=== PATIENT | female | born 2000 | race Caucasian/White ===

== ENCOUNTER 2022-08-06 17:21 | Emergency (ER) | payer OTHER, SELFPAY ==
[2022-08-06 17:45] VITALS: BP 143/97; PULSE 93; RESP 18; TEMP 36.7; O2SAT 100
--- NOTE | 2022-08-06 17:57 | ED.NAVMDI ---
HPI - Nausea/Vomiting/Diarrhea General Chief complaint: Nausea/Vomiting/Diarrhea Stated complaint: Diarrhea,Abdominal Pain Source: patient Mode of arrival: ambulatory History of Present Illness HPI Narrative: This is a 22-year-old female who presented to our urgent care to get a doctor statement for work. Patient's has a history of irritable bowel syndrome and has a appointment with her gastroenteritis DrDai for further treatment. Patient notes that she has been having diarrhea and has been unable to make it to the restroom and has not been able to go to work as a result of this.. She denies any abdominal pain. The patient denies SOB, CP, palpitation, extremity numbness, lightheadedness, dizziness, constipation, chills, or fever. Related Data Allergies Allergy/AdvReac Type Severity Reaction Status Date / Time No Known Allergies Allergy Verified 08/06/22 17:37 Review of Systems Review of Systems: A 14 organ system Review of Systems was performed and pertinent positives included in the HPI, otherwise remaining ROS is negative. Course Course Level of Care: Express Care Visit Vital Signs Vital signs: Vital Signs Temperature 98.1 F 08/06/22 17:45 Pulse Rate 93 08/06/22 17:45 Respiratory Rate 18 08/06/22 17:45 Blood Pressure 143/97 H 08/06/22 17:45 Pulse Oximetry 100 08/06/22 17:45 Oxygen Delivery Room Air 08/06/22 17:45 Temperature 98.1 F 08/06/22 17:45 Pulse Rate 93 08/06/22 17:45 Respiratory Rate 18 08/06/22 17:45 Blood Pressure 143/97 H 08/06/22 17:45 Pulse Oximetry 100 08/06/22 17:45 Oxygen Delivery Room Air 08/06/22 17:45 Discharge Plan Discharge Clinical Impression: Diarrhea Patient Disposition: Home, Self-Care Condition: Stable Instructions: Antibiotic Form, Irritable Bowel Syndrome (ED) Additional Instructions: 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 ?Start a diary to keep track of what you ate each day, what you did, and how you felt. That way, you can figure out if anything you do or eat makes your symptoms better or worse.? ?Stop eating foods that might be making your IBS worse. Start by giving up foods that give you gas and then milk, ice cream, and other foods that have traces of milk for 2 weeks. Ask your doctor or nurse for advice on which foods can make IBS worse.? ?Eat more fiber, if you have constipation. You can do this by eating more fruits and vegetables. Or you can take fiber pills or powders. (If eating more fiber makes symptoms worse, cut back on the fiber.)? ?Exercise. Do something active for 20 to 60 minutes, 3 to 5 days a week. Studies show this helps improve IBS symptoms. Drink plenty of fluids to stay hydrated? Prescriptions: New loperamide 2 mg capsule 2 mg PO Q6H PRN (Reason: loose stool) Qty: 30 0RF Follow-up/Referrals: Geovanna,Danie Bethea MD [Primary Care Provider] - Stand Alone Forms: Work/School Release IP
== END 2022-08-06 18:00 | disposition home or self-care (01) ==
PROVIDERS: Emergency Provider Nurse Practitioner; PCP Family Medicine
DX: R19.7 Diarrhea, unspecified (principal)
CPT/HCPCS: 99203; G0463

== ENCOUNTER 2022-08-19 18:26 | Emergency (ER) | payer OTHER, SELFPAY ==
[2022-08-19 18:59] VITALS: BP 149/90; PULSE 128; RESP 16; TEMP 37.7; O2SAT 100
--- NOTE | 2022-08-19 19:43 | ED.GENADULT ---
HPI - General Adult General Chief complaint: Medical Clearance Stated complaint: Doctors Note Time Seen by Provider: 08/19/22 19:43 Source: patient, RN notes reviewed and old records reviewed Mode of arrival: ambulatory Limitations: no limitations History of Present Illness HPI narrative: 22-year-old female presents to the [facility] requesting a work note. Patient states that on Thursday she got her COVID vaccine. She developed into body aches pains and vomiting. Feels great today. Just wants to go back to work. Denies any fevers, abdominal pain, chest pain. Related Data Home Medications Medication Instructions Recorded Confirmed etonogestrel 68 mg subdermal See Rx Instructions .Route .COMPLEX 08/06/22 08/19/22 implant (Nexplanon) Allergies Allergy/AdvReac Type Severity Reaction Status Date / Time Penicillins Allergy Unknown Other Verified 08/19/22 19:37 Review of Systems Review of Systems: All systems reviewed & are unremarkable except as noted in HPI and below Constitutional: Constitutional: Reports no additional constitutional complaints, Denies chills and Denies fever(s) Eyes: Eyes: Reports no additional eye complaints ENT: Reports system reviewed and no additional complaints, except as documented Cardiovascular: Cardiovascular: Reports no additional cardiovascular complaints Respiratory: Respiratory: Reports no additional respiratory complaints Gastrointestinal: Gastrointestinal: Reports no additional gastrointestinal complaints Musculoskeletal: Musculoskeletal: Reports no additional musculoskeletal complaints Integumentary/Breasts: Skin/Breast: Reports system reviewed and no additional complaints, except as docu Neurologic: Reports system reviewed and no additional complaints, except as documented Psychiatric: Psychiatric: Reports no additional psychiatric complaints Allergic/Immunologic: Allergic/Immunologic: Reports no additional allergic/immunologic complaints PMFSH Comments At the time of my signature, I reviewed and agree with the nursing past medical, surgical, social, and family history. There is no relevant family history pertinent to the patient complaint. Exam Const: General: healthy appearing, comfortable, no acute distress, well developed, alert and well nourished Nutritional Appearance: well nourished and obese Orientation/consciousness: patient oriented x3 Limitations: no limitations HENMT: Head: normal to inspection Ears: external ears normal Face/Nose/Sinus: Normal external nose present and Normal nares present Face and sinus: normal facial exam Mouth: Yes Normal oral and palatal mucosa present, Yes lip normal and Yes moist mucous membranes Throat: posterior oropharynx normal and uvula midline Eyes: General: appearance normal, both eyes and all related structures Conjunctivae: conjunctivae normal Pupils: Equal, round and reactive pupils present Neck: Neck: normal visual inspection, full ROM, no lymphadenopathy and no meningeal signs Chest: Chest palpation & inspection: normal inspection of the chest Resp: Effort & Inspection: normal respiratory effort and no use of accessory muscles Cardio: Rate: regular rate Rhythm: regular rhythm Back/Spine/Pelvis: Cervical Spine: cervical ROM normal and No Cervical spine tenderness Thoracic/Lumbar Spine: thoracic and lumbar spine normal to inspection and thoraco-lumbar ROM normal Skin: General skin exam: normal color Rashes: no rashes Wounds: no wounds Neuro: General: patient oriented x3, moves all extremities, no meningeal signs and no focal motor deficits Cranial nerves: Yes Equal, round and reactive pupils present Speech: normal speech Gait exam (Neuro): Normal gait present Extrem: General: normal to inspection, full ROM and capillary refill normal Psych: Appearance: grossly normal and well kempt Mental Status: mental status grossly normal Affect: normal affect Attitude: cooperative Thought content: Yes Normal thoug
== END 2022-08-19 19:52 | disposition home or self-care (01) ==
PROVIDERS: Emergency Provider Nurse Practitioner; PCP Family Medicine
DX: Z71.1 Person with feared health complaint in whom no diagnosis is made (principal)
CPT/HCPCS: 99211; G0463

== ENCOUNTER 2022-10-28 16:34 | Emergency (ER) | payer OTHER, SELFPAY ==
--- NOTE | 2022-10-28 16:47 | ED.URI ---
HPI - URI/Sore Throat General Stated Complaint: cold symptoms Time Seen by Provider: 10/28/22 16:47 Source: patient Mode of arrival: ambulatory Limitations: no limitations History of Present Illness HPI Narrative: Radha is a 22-year-old female patient presenting to clinic today with complaints of runny nose, cough, sore throat, body aches, and fever. Reports that symptoms started on Thursday. States she had 102 degree temperature this morning. 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 States she did an at-home COVID test yesterday that was negative. Work is requesting an influenza test prior to her coming back to work. MD elicited complaint: fever, cough, sore throat, nasal congestion and other (Body aches) Related Data Home Medications Medication Instructions Recorded Confirmed etonogestrel 68 mg subdermal See Rx Instructions .Route .COMPLEX 08/06/22 08/19/22 implant (Nexplanon) Allergies Allergy/AdvReac Type Severity Reaction Status Date / Time Penicillins AdvReac Unknown Other Verified 10/28/22 16:52 Review of Systems Review of Systems: Pertinent positives per HPI. Patient denies any rash, headache, visual changes, dizziness, shortness of breath, chest pain, palpitations, nausea, vomiting, diarrhea, constipation, abdominal pain, or any urinary issues. PMFSH Comments At the time of my signature, I reviewed and agree with the nursing past medical, surgical, social, and family history. There is no relevant family history pertinent to the patient complaint. Exam Narrative: General: Well-developed, obese, in no apparent distress Head: Normocephalic, atraumatic Eyes: Pupils equally round and reactive to light bilaterally, EOM intact, sclera and conjunctive clear, no discharge, lids normal Ears: TMs intact and clear, ear canals clear, no drainage, grossly hearing normal. Nose: Nares patent, no discharge, no inflammation, no sinus tenderness. Mouth: Oral pharynx without lesions or masses, good dentition, MMM. Neck: Supple, trachea midline, no enlargement of anterior or posterior cervical nodes, no thyroid masses or goiter palpable. Cardio: Regular rate and rhythm, s1 and s2 normal, no murmur appreciated. Resp: Clear to auscultation bilaterally, no rhonchi, rales, wheezing or rubs Course Course Emergency Course: Portions of this record may have been created with voice recognition software. Level of Care: Express Care Visit Vital Signs Vital signs: Vital signs reviewed MDM - URI/Sore Throat MDM Narrative Medical decision making narrative: At the time of the patient is resting comfortably on exam table. Influenza testing was performed in clinic was negative. I suspect patient has URI/viral syndrome. Supportive measures were discussed with the patient she voiced understanding of discharge instructions and agrees to treatment plan. Differential Diagnosis Differential diagnosis: Likely upper respiratory infection, otitis media, sinusitis, viral infection, bronchitis, influenza, pharyngitis and other (COVID) Discharge Plan Discharge Clinical Impression: Acute upper respiratory infection, Acute viral syndrome Patient Disposition: Home, Self-Care Condition: Stable Instructions: Antibiotic Form, Upper Respiratory Infection (ED), Viral Syndrome (ED) Additional Instructions: Influenza testing was negative in the clinic today. Increase fluids and stay well hydrated Tylenol/motrin for pain/fever Flonase and OTC antihistamines as directed Vicks vapor rub to open sinuses Sinus rinses for congestion Cepacol spray, cough drops, throat lozenges, warm tea with honey/lemon, gargle salt water to soothe throat BRAT diet for diarrhea Clear liquids x 24 hours then advance as tolerated for nausea/vomiting Go to the ED if you develop a worsening in your condition- high fever not controlled by Tylenol or Motrin, dehydration, weakness, lethargy, shortness of breath, or chest pain. Foll
[2022-10-28 16:52] VITALS: BP 135/85; PULSE 91; RESP 18; TEMP 36.6; O2SAT 99
== END 2022-10-28 17:11 | disposition home or self-care (01) ==
PROVIDERS: Emergency Provider Nurse Practitioner Family; PCP Family Medicine
DX: J06.9 Acute upper respiratory infection, unspecified (principal); B34.9 Viral infection, unspecified; Z86.16 Personal history of COVID-19
CPT/HCPCS: 87804; 99213; G0463

== ENCOUNTER 2022-12-28 04:27 | Emergency (ER) | payer OTHER, SELFPAY ==
[2022-12-28 04:32] VITALS: BP 139/99; PULSE 112; RESP 18; TEMP 36.9; O2SAT 100
[2022-12-28 06:01] VITALS: BP 157/90; PULSE 93; RESP 16; O2SAT 98
[2022-12-28 07:20] VITALS: BP 141/87; PULSE 77; RESP 18; O2SAT 100
--- NOTE | 2022-12-28 08:18 | ED.GENADULT ---
HPI - General Adult General Chief complaint: Unspecified Stated complaint: nausea, felt shock in body, back, chest Time Seen by Provider: 12/28/22 07:58 Source: patient Mode of arrival: ambulatory Limitations: no limitations History of Present Illness HPI narrative: 22 years old white female drove herself to the emergency room from home because not feeling well. Patient got up this morning feeling nauseated, went to the bathroom to vomit, she could not then started feeling burning sensation across the chest and upper back going to both arms, subsequently seeing black spots which resolved on arrival to the emergency room. Patient reports no previous medical history, have a lot of stress lately. Currently patient feeling back to normal. She denies any fever, chills, shortness of breath or headache. Patient sexually active, does not smoke or drink or uses drugs. Family history of bipolar Related Data Home Medications Medication Instructions Recorded Confirmed etonogestrel 68 mg subdermal See Rx Instructions .Route .COMPLEX 08/06/22 10/28/22 implant (Nexplanon) Allergies Allergy/AdvReac Type Severity Reaction Status Date / Time Penicillins AdvReac Unknown Other Verified 12/28/22 04:28 Review of Systems Review of Systems: All systems reviewed & are unremarkable except as noted in HPI and below Exam Narrative: General appearance: Well-developed, well-nourished Skin: Normal color Head: Normocephalic, nontraumatic Eyes: Clear conjunctiva ENT: Oropharynx normal, ears normal, nose normal Neck: Supple, nontender Chest and respiratory: Airway patent, no respiratory distress, no accessory muscle use Heart: Regular rate/rhythm Abdomen: Soft, nontender, no organomegaly, quiet bowel sounds Vascular: Normal peripheral pulses, normal capillary refill. Musculoskeletal: Normal range of motion, nontender back Neurologic: Alert and oriented ?3, [employer] is normal as tested, no gross motor deficit Course Vital Signs Vital signs: Vital Signs Temperature 36.9 C 12/28/22 04:32 Pulse Rate 112 H 12/28/22 04:32 Respiratory Rate 18 12/28/22 04:32 Blood Pressure 139/99 H 12/28/22 04:32 Pulse Oximetry 100 12/28/22 04:32 Temperature 36.9 C 12/28/22 04:32 Pulse Rate 77 12/28/22 07:20 Respiratory Rate 18 12/28/22 07:20 Blood Pressure 141/87 H 12/28/22 07:20 Pulse Oximetry 100 12/28/22 07:20 Medical Decision Making MDM Narrative Medical decision making narrative: Patient presents with nonspecific symptoms, a lot of stress lately. Anxiety-like symptoms is my concern. EKG showed normal sinus rhythm at 91 bpm otherwise normal, urine test showed no acute abnormalities, patient is not . Patient's symptoms resolved on arrival to the emergency room. Currently is asymptomatic. Differential Diagnosis Differential Diagnosis: Anxiety, Vital Signs Vital Signs: Vital Signs Temperature 36.9 C 12/28/22 04:32 Pulse Rate 112 H 12/28/22 04:32 Respiratory Rate 18 12/28/22 04:32 Blood Pressure 139/99 H 12/28/22 04:32 Pulse Oximetry 100 12/28/22 04:32 Temperature 36.9 C 12/28/22 04:32 Pulse Rate 77 12/28/22 07:20 Respiratory Rate 18 12/28/22 07:20 Blood Pressure 141/87 H 12/28/22 07:20 Pulse Oximetry 100 12/28/22 07:20 Lab Data Labs: Lab Results 12/28/22 Range/Units 08:48 Urine Color Yellow (Yellow) Urine Appearance Clear (Clear) Urine pH 5.5 (5.0-9.0) Ur Specific [place] 1.015 (1.001-1.035) Urine Protein Negative (Negative) mg/dL Urine Glucose (UA) Negative (Negative) mg/dL Urine Ketones Negative (Negative) mg/dL Ur Blood (Man) Negative
--- NOTE | 2022-12-28 08:22 | ECG_ITS ---
Measurements Intervals [place] Rate: 91 P: 15 NM: 147 QRS: 32 QRSD: 92 T: 5 QT: 346 QTc: 427 Interpretive Statements SINUS RHYTHM MINIMAL Q WAVES- INFERIOR LEADS BORDERLINE T WAVE ABNORMALITY- ANT/INF LEADS BORDERLINE ECG NO PREVIOUS ECG AVAILABLE FOR COMPARISON Electronically Signed On 12-28-2022 17:12:33 CDT by Robi Cesar D.O.
[2022-12-28 09:13] LABS: Appearance Urine Clear (Clear); Bacteria Urine Rare /hpf; Bilirubin Urine Negative (Negative); Blood Urine Negative (Negative); Color Urine Yellow (Yellow); Glucose Urine UA Negative (Negative); Ketones Urine Negative (Negative); Leukocyte Esterase Ur Trace LEU/UL (Negative); Nitrate Urine Negative (Negative); Non Pathogenic Casts 0-2; Protein Urine Negative (Negative); RBC Urine 0-2 /hpf (0-2); Specific Grav Ur 1.015 (1.001-1.035); Squamous Epithelial Cell Urine Occasional /hpf (Few); Urobilinogen Urine 0.2 mg/dL (<2.0); WBC Urine 0-5 /hpf; pH Urine 5.5 (5.0-9.0)
[2022-12-28 09:16] LABS: Add Urine Microscopic? YES
[2022-12-28 09:41] VITALS: BP 117/82; PULSE 89; RESP 20; O2SAT 100
== END 2022-12-28 09:43 | disposition home or self-care (01) ==
PROVIDERS: Emergency Provider Emergency Medicine; PCP Family Medicine
DX: F41.8 Other specified anxiety disorders (principal)
CPT/HCPCS: 81001; 81025; 93005; 99283

== ENCOUNTER 2023-03-03 16:31 | Emergency (ER) | payer OTHER, SELFPAY ==
[2023-03-03 16:40] VITALS: BP 140/75; PULSE 77; RESP 18; TEMP 36.8; O2SAT 100
--- NOTE | 2023-03-03 16:42 | ED.ABDPAIN ---
HPI - Abdominal Pain General Chief Complaint: Abdominal Pain Stated Complaint: Abdominal Pain/Diarrhea Time Seen by Provider: 03/03/23 16:43 Source: patient Mode of arrival: ambulatory Limitations: no limitations History of Present Illness HPI narrative: Radha is a 22-year-old female patient presenting to the clinic today with complaints of abdominal cramping/diarrhea. She reports symptoms have been going on for approximately 1 day. She reports the last time she was seen for this she got a prescription for some loperamide and that helped her. She has taken something [id number] but does not know what she has taken. Denies any fever or chills. Denies any current pain. States she is supposed to see a GI specialist for possible IBS Related Data Home Medications Medication Instructions Recorded Confirmed etonogestrel 68 mg subdermal See Rx Instructions .Route .COMPLEX 08/06/22 03/03/23 implant (Nexplanon) Allergies Allergy/AdvReac Type Severity Reaction Status Date / Time Penicillins AdvReac Unknown Other Verified 03/03/23 16:41 Review of Systems Review of Systems: Pertinent positives per HPI. Patient denies any fever, chills, rash, headache, visual changes, dizziness, cough, runny nose, sore throat, shortness of breath, chest pain, palpitations, nausea, vomiting, constipation, or any urinary issues. PMFSH Comments At the time of my signature, I reviewed and agree with the nursing past medical, surgical, social, and family history. There is no relevant family history pertinent to the patient complaint. Exam Narrative: General: Well-developed, obese, in no apparent distress. Head: Normocephalic, atraumatic. Cardio: Regular rate and rhythm, s1 and s2 normal, no murmur appreciated. Resp: Clear to auscultation bilaterally, no rhonchi, rales, wheezing or rubs. Abdomen: Soft, pliable, bowel sounds present in all quadrants, non-tender to palpation, no organomegly, no CVAT tenderness. Course Course Emergency Course: Portions of this record may have been created with voice recognition software. Level of Care: Express Care Visit Vital Signs Vital signs: Vital Signs Temperature 36.8 C 03/03/23 16:40 Pulse Rate 77 03/03/23 16:40 Respiratory Rate 18 03/03/23 16:40 Blood Pressure 140/75 03/03/23 16:40 Pulse Oximetry 100 03/03/23 16:40 Oxygen Delivery Room Air 03/03/23 16:40 Temperature 36.8 C 03/03/23 16:40 Pulse Rate 77 03/03/23 16:40 Respiratory Rate 18 03/03/23 16:40 Blood Pressure 140/75 03/03/23 16:40 Pulse Oximetry 100 03/03/23 16:40 Oxygen Delivery Room Air 03/03/23 16:40 Vital signs reviewed MDM - Abdominal Pain MDM Narrative Medical decision making narrative: At the time of visit patient is resting comfortably on the exam table. At the present time patient does not have any abdominal pain or cramping. Will send in prescription for some Levsin for her symptoms. Supportive measures were discussed with the patient she voiced understanding of discharge instructions and agrees to treatment plan. Differential Diagnosis Differential diagnosis: Likely abdominal pain, constipation, gastroenteritis, small bowel obstruction and other (Acute diarrhea) Discharge Plan Discharge Clinical Impression: Acute diarrhea, Abdominal cramping Patient Disposition: Home, Self-Care Condition: Stable Instructions: Antibiotic Form, Acute Diarrhea (ED), Abdominal Pain (ED) Additional Instructions: Take prescription medications only as prescribed-Levsin Increase fluids and stay well hydrated Tylenol/motrin for pain/fever May take Imodium as needed for diarrhea BRAT diet for diarrhea Clear liquids x 24 hours then advance as tolerated for nausea/vomiting Go to the ED if you develop a worsening in your condition- high fever not controlled by Tylenol or Motrin, dehydration, weakness, lethargy, shortness of breath, or chest pain. Follow up with
== END 2023-03-03 17:13 | disposition home or self-care (01) ==
PROVIDERS: Emergency Provider Nurse Practitioner Family; PCP Family Medicine
DX: R19.7 Diarrhea, unspecified (principal); R10.9 Unspecified abdominal pain; Z86.16 Personal history of COVID-19
CPT/HCPCS: 99211; G0463

== ENCOUNTER 2023-06-16 09:58 | Emergency (ER) | payer OTHER, SELFPAY ==
--- NOTE | ~2023-06-16 | XR_ITS ---
EXAMINATION: XR abdomen/kub 1V DATE: 06/16/2023 10:28 INDICATION: 2 days of lower abdominal pain and bloating TECHNIQUE: A supine view of the abdomen on 2 radiographs was obtained. COMPARISON: None. FINDINGS: Small amount of gas and stool in the ascending colon and at the rectum. No dilated loops of gas-fille d bowel to suggest obstruction. No calcification suspicious for urolithiasis in the abdomen or pelvis . Bones are unremarkable. IMPRESSION: 1. Normal bowel gas pattern. Reviewed, dictated and finalized at location A.
[2023-06-16 10:05] VITALS: BP 140/81; PULSE 82; RESP 18; TEMP 36.6; O2SAT 100
--- NOTE | 2023-06-16 10:07 | ED.ABDPAIN ---
HPI - Abdominal Pain General Chief Complaint: Urogenital-Female Stated Complaint: Abdominal Pain Time Seen by Provider: 06/16/23 10:07 Source: patient Mode of arrival: ambulatory Limitations: no limitations History of Present Illness HPI narrative: Radha is a 22-year-old female patient presenting to the clinic today with complaints of abdominal discomfort x 2-3 days. She is currently on her menses. Did at home COVID test on Thursday and was negative. States she is having abdominal bloating and mid to lower abdominal discomfort. Is concerned that she may be constipated. No history of IBS, constipation, Crohn's, or colitis. Denies any urinary symptoms currently. Last bowel movement was this morning and it was somewhat loose. No blood in her stool. Related Data Home Medications Medication Instructions Recorded Confirmed etonogestrel 68 mg subdermal See Rx Instructions .Route .COMPLEX 08/06/22 03/03/23 implant (Nexplanon) Allergies Allergy/AdvReac Type Severity Reaction Status Date / Time Penicillins AdvReac Unknown Other Verified 03/03/23 16:41 Review of Systems Review of Systems: Pertinent positives per HPI. Patient denies any fever, chills, rash, headache, visual changes, dizziness, cough, runny nose, sore throat, shortness of breath, chest pain, palpitations, nausea, vomiting, diarrhea, constipation, or any urinary issues. PMFSH Comments At the time of my signature, I reviewed and agree with the nursing past medical, surgical, social, and family history. There is no relevant family history pertinent to the patient complaint. Exam Narrative: General: Well-developed, well nourished, in no apparent distress. Head: Normocephalic, atraumatic. Cardio: Regular rate and rhythm, s1 and s2 normal, no murmur appreciated. Resp: Clear to auscultation bilaterally, no rhonchi, rales, wheezing or rubs. Abdomen: Soft, pliable, nondistended, bowel sounds present in all quadrants, mild tender to palpation over the lower abdomen and the mid abdomen, no organomegly, no CVAT tenderness. Course Course Emergency Course: Portions of this record may have been created with voice recognition software. Level of Care: Express Care Visit Vital Signs Vital signs: Vital Signs Temperature 36.6 C 06/16/23 10:05 Pulse Rate 82 06/16/23 10:05 Respiratory Rate 18 06/16/23 10:05 Blood Pressure 140/81 06/16/23 10:05 Pulse Oximetry 100 06/16/23 10:05 Oxygen Delivery Room Air 06/16/23 10:05 Temperature 36.6 C 06/16/23 10:05 Pulse Rate 82 06/16/23 10:05 Respiratory Rate 18 06/16/23 10:05 Blood Pressure 140/81 06/16/23 10:05 Pulse Oximetry 100 06/16/23 10:05 Oxygen Delivery Room Air 06/16/23 10:05 Vital signs reviewed MDM - Abdominal Pain MDM Narrative Medical decision making narrative: At the time of visit patient is resting on the exam table. Urinalysis and abdomen x-ray was performed. X-ray of the abdomen was negative for any sign of constipation, obstruction, or mass. Urinalysis shows 1+ bacteria and blood. Patient is currently on her menses. Patient is having some lower abdominal discomfort. A will treat her as urinary tract infection and have her follow-up with her PCP in 3-5 days if symptoms persist or sooner if they worsen. Supportive measures were discussed with the patient she voiced understanding discharge instructions agrees to treatment plan. We will send urine for culture. Will place the patient on Bactrim. Differential Diagnosis Differential diagnosis: Likely abdominal pain, acute appendicitis, calculus of kidney, constipation, diverticulitis, gastroenteritis, pancreatitis, small bowel obstruction and other (Urinary tract infections) Imaging Data Radiologist's impression: [address] [address] XRay Report Signed Patient: Radha Mobley : 2000 MR#: [id number] Age/Sex: 22 / F Acct:F
== END 2023-06-16 10:51 | disposition home or self-care (01) ==
PROVIDERS: Emergency Provider Nurse Practitioner Family; PCP Family Medicine
DX: N30.01 Acute cystitis with hematuria (principal)
CPT/HCPCS: 74018; 81003; 87086; 87088; 99213; G0463

== ENCOUNTER 2024-03-25 11:49 | Emergency (ER) | payer SELFPAY ==
--- NOTE | 2024-03-25 11:51 | ED.SKABFB ---
HPI - Skin/Abscess/Foreign Bdy General Chief complaint: Skin/Abscess/Foreign Body Stated complaint: Skin Time Seen by Provider: 03/25/24 11:51 Source: patient Mode of arrival: ambulatory Limitations: no limitations History of Present Illness HPI narrative: Patient is a 23-year-old female presents with wound to mons pubis. Patient states she recently shaved and has had similar wounds after shaving in the past. Usually she can get them to go away on their own. This 1 has been painful and is continued to grow. She 1st noticed area on Thursday. Denies any drainage from area and has not tried to pop. Related Data Allergies Allergy/AdvReac Type Severity Reaction Status Date / Time Penicillins AdvReac Unknown Other Verified 03/25/24 12:06 Review of Systems Review of Systems: All systems reviewed & are unremarkable except as noted in HPI and below Constitutional: Constitutional: Denies body ache(s), Denies chills, Denies fatigue, Denies fever(s), Denies headache(s), Denies malaise and Denies weakness Eyes: Eyes: Denies blurry vision, Denies irritation and Denies loss of vision ENT: Denies otalgia, Denies headache(s), Denies nasal discharge, Denies sinus pain and Denies sore throat Cardiovascular: Cardiovascular: Denies chest pain, Denies irregular heart rhythm and Denies dyspnea Respiratory: Respiratory: Denies dyspnea Gastrointestinal: Gastrointestinal: Denies abdominal pain, Denies melena, Denies hematochezia, Denies diarrhea, Denies nausea and Denies vomiting Musculoskeletal: Musculoskeletal: Denies back pain, Denies myalgias and Denies arthralgias Integumentary/Breasts: Skin/Breast: Denies pruritus, Denies rash and Reports wounds Neurologic: Denies headache(s), Denies loss of vision and Denies weakness Psychiatric: Psychiatric: Reports no additional psychiatric complaints Endocrine: Endocrine: Denies fatigue PMFSH Comments At time of signature, agree with nursing past medical, surgical, social and family history. There is no relevant family history pertinent to the presenting complaint. Exam Const: General: cooperative, healthy appearing, comfortable, no acute distress and well nourished Nutritional Appearance: well nourished Orientation/consciousness: patient oriented x3 Limitations: no limitations HENMT: Head: normal to inspection, normocephalic and atraumatic Ears: hearing grossly normal bilaterally and external ears normal Face/Nose/Sinus: Normal external nose present, normal facial exam and face symmetric Face and sinus: normal facial exam and face symmetric Mouth: Yes lip normal Eyes: General: appearance normal, both eyes and all related structures Alignment and Position: alignment normal and position normal Periorbital: periorbital findings normal Eyelids: eyelids normal Pupils: Equal, round and reactive pupils present EOM: EOMs intact bilaterally Neck: Neck: normal visual inspection, full ROM and supple Chest: Chest palpation & inspection: normal inspection of the chest Resp: Effort & Inspection: normal respiratory effort and able to speak in complete sentences Auscultation: clear to auscultation bilaterally Cardio: Rate: regular rate Rhythm: regular rhythm Heart sounds: S1 normal heart sound present and S2 normal heart sound present GI: Inspection: normal to inspection : External Female Exam: erythema (center of mons pubis surrounding ingrown hair) and externally tender (center of mons pubis surrounding ingrown hair) Female genitals images: 1. 2x2 cm area of erythema, induration. No area of fluctuation. Dilated pore noticed at center Skin: General skin exam: normal color and no rashes or lesions noted Neuro: General: patient oriented x3 and moves all extremities Cranial nerves: Yes Equal, round and reactive pupils present Speech: normal speech Gait exam (Neuro): Normal gait present Extrem: General: normal to inspection, full ROM and no edema Psych: Appearance: grossly portillo
[2024-03-25 12:05] VITALS: BP 135/74; PULSE 82; RESP 16; TEMP 37.1; O2SAT 99
== END 2024-03-25 12:31 | disposition home or self-care (01) ==
PROVIDERS: Emergency Provider Nurse Practitioner Family
DX: L73.1 Pseudofolliculitis barbae (principal); N76.2 Acute vulvitis; K21.9 Gastro-esophageal reflux disease without esophagitis; Z86.16 Personal history of COVID-19
CPT/HCPCS: 99213; G0463

== ENCOUNTER 2024-06-15 22:54 | Emergency (ER) | payer SELFPAY ==
[2024-06-15 23:08] VITALS: BP 140/91; PULSE 92; RESP 16; TEMP 36.7; O2SAT 98
[2024-06-16 01:19] LABS: Basophils Absolute Auto 0.1 K/mm3 (0.0-0.1); Basophils Percent Auto 0.9 % (0.2-1.2); Eosinophils Absolute Auto 0.1 K/mm3 (0-0.3); Eosinophils Percent Auto 1.2 % (0-4.4); Hematocrit 39.4 % (37.0-47.0); Hemoglobin 13.4 g/dL (12.0-15.0); Immature Granulocyte Absolute 0.03 K/mm3 (0.00-0.031); Immature Granulocyte Percent A 0.3 % (0-0.5); Lymphocytes Percent Auto 30.4 % (18.3-44.2); Mean Corpuscular Hemoglobin 29.1 pg (26-34); Mean Corpuscular Volume 85.7 fl (80-100); Mean Platelet Volume 10.1 fl (7.4-10.4); Monocytes Absolute Auto 0.6 K/mm3 (0.1-0.6); Monocytes Percent Auto 6.9 % (2.6-8.5); Neutrophils Absolute Auto 5.3 K/mm3 (1.3-6.7); Neutrophils Percent Auto 60.3 % (45.5-73.1); Platelet Count Result 297 k/mm3 (150-375); Red Cell Distribution Width 13.3 % (11.5-14.5); White Blood Count 8.9 K/mm3 (4.5-10.0)
[2024-06-16 01:30] LABS: Bacteria Urine None Seen /hpf; Non Pathogenic Casts 0-2; Partial Thromboplastin Time 26.3 Seconds (22.3-36.8); RBC Urine >100 /hpf (0-2); Squamous Epithelial Cell Urine None Seen /hpf (Few); WBC Urine 21-50 /hpf (0-3)
[2024-06-16 01:32] LABS: Add Urine Microscopic? YES; Appearance Urine Turbid (Clear); Bilirubin Urine Negative (Negative); Blood Urine 3+ (Negative); Color Urine Orange (Yellow); Glucose Urine UA Negative (Negative); Ketones Urine Negative (Negative); Leukocyte Esterase Ur 1+ LEU/UL (Negative); Nitrate Urine Negative (Negative); Protein Urine 2+ mg/dL (Negative); Specific Grav Ur 1.029 (1.001-1.035)
[2024-06-16 01:34] LABS: Alanine Aminotransferase 37 U/L (6-35); Albumin Level 4.3 g/dL (3.5-5.1); Alkaline Phosphatase 83 U/L (38-126); Anion Gap 13 mmol/L (4-12); Aspartate Amino Transferase 25 U/L (14-36); Bilirubin,Total 0.5 mg/dL (0.2-1.3); Blood Urea Nitrogen 12 mg/dL (7-17); Calcium 9.6 mg/dL (8.4-10.2); Carbon Dioxide 20 mmol/L (22-30); Chloride 107 mmol/L (98-107); Estimated CRCL calculation 111 ml/min; Estimated Glomerular Filt Rate > 60; Glucose 99 mg/dL (65-110); Potassium 3.9 mmol/L (3.4-5.0); Sodium 140 mmol/L (137-145)
[2024-06-16 01:35] LABS: BEDSIDEPREGUCG Negative
[2024-06-16 01:51] LABS: Beta HCG Quantitative < 2.39 mIU/ML
[2024-06-16 04:26] VITALS: BP 143/97; PULSE 87; RESP 14; O2SAT 100
--- NOTE | 2024-06-16 05:59 | ED.GENADULT ---
HPI - General Adult General Chief complaint: Vaginal Bleeding Stated complaint: vaginal bleeding Time Seen by Provider: 06/16/24 05:28 History of Present Illness HPI narrative: Is a 23-year-old female presenting with vaginal bleeding. Patient says that she typically has a like. For 4 days every 28 days. However she has been passing large clots and bleeding through her pads today. Patient is not . No other symptoms. She is not on control Related Data Allergies Allergy/AdvReac Type Severity Reaction Status Date / Time Penicillins AdvReac Unknown Other Verified 06/15/24 23:10 Exam Narrative: APPEARANCE: No apparent distress. Head: atraumatic. EYES: EOMI, NOSE: Atraumatic NECK: Trachea midline RESPIRATORY: No increased rate of breathing CARDIOVASCULAR: RRR, ABDOMINAL: Non-distended soft nontender MUSCULOSKELETAl: No obvious deformities NEURO: Alert. Moving 4/4 extremities SKIN:: Warm, dry. Normal color PSYCHIATRIC: Normal affect Course Vital Signs Vital signs: Vital Signs Temperature 98.0 F 06/15/24 23:08 Pulse Rate 92 06/15/24 23:08 Respiratory Rate 16 06/15/24 23:08 Blood Pressure 140/91 H 06/15/24 23:08 Pulse Oximetry 98 06/15/24 23:08 Oxygen Delivery Room Air 06/15/24 23:08 Temperature 98.0 F 06/15/24 23:08 Pulse Rate 87 06/16/24 04:26 Respiratory Rate 14 06/16/24 04:26 Blood Pressure 143/97 H 06/16/24 04:26 Pulse Oximetry 100 06/16/24 04:26 Oxygen Delivery Room Air 06/15/24 23:08 Medical Decision Making [facility] Narrative Medical decision making narrative: -Course: 23-year-old presenting with heavy vaginal bleeding. Hemoglobin stable. Patient notes that bleeding has slowed down since she has been in the emergency department. I discussed the role of OCPs with the patient and she will follow this up with her primary care physician. Urine had some white blood cells but the patient has no urinary complaints. Will await culture results. -DDX includes but is not limited to: Dysfunctional uterine bleeding, , miscarriage -Co-morbidities complicating care: Obesity Independent interpretation of studies: Labs reviewed -Shared decision making / Disposition: Discharge Vital Signs Vital Signs: Vital Signs Temperature 98.0 F 09/04/24 23:08 Pulse Rate 92 06/15/24 23:08 Respiratory Rate 16 06/15/24 23:08 Blood Pressure 140/91 H 06/15/24 23:08 Pulse Oximetry 98 06/15/24 23:08 Oxygen Delivery Room Air 06/15/24 23:08 Temperature 98.0 F 06/15/24 23:08 Pulse Rate 87 06/16/24 04:26 Respiratory Rate 14 06/16/24 04:26 Blood Pressure 143/97 H 06/16/24 04:26 Pulse Oximetry 100 06/16/24 04:26 Oxygen Delivery Room Air 06/15/24 23:08 Lab Data 06/16/24 00:57 06/16/24 00:57 Labs: Lab Results 06/16/24 06/16/24 Range/Units 00:57 01:25 WBC 8.9 (4.5-10.0) K/mm3 RBC 4.60 (4.2-5.4) M/mm3 Hgb 13.4 (12.0-15.0) g/dL Hct 39.4 (37.0-47.0) % MCV 85.7 (80-100) fl MCH 29.1 (26-34) pg MCHC 34.0 (32-36) g/dl RDW 13.3 (11.5-14.5) % Plt Count 297 (150-375) k/mm3 MPV 10.1 (7.4-10.4) fl Immature Gran % (Auto) 0.3 (0-0.5) % Neut % (Auto) 60.3 (45.5-73.1) % Lymph % (Auto) 30.4 (18.3-44.2) % [place] % (Auto) 6.9 (2.6-8.5) % Eos % (Auto) 1.2 (0-4.4) % Baso % (Auto) 0.9 (0.2-1.2) % Lymph # (Auto) 2.70 (0.9-3.2) K/mm3 [place] # (Auto) 0.6 (0.1-0.6) K/mm3 Eos # (Auto) 0.1 (0-0.3) K/mm3 Baso # (Auto) 0.1 (0.0-0.1) K/mm3 Abs Immat Gran (auto) 0.03 (0.00-0.031) K/mm3 Absolute Neuts (auto) 5.3 (1.3-6.7) K/mm3 Absolute Nucleated RBC 0.000 (0.0-0.012) K/mm3 Nucleated RBC % 0.0 (0.0-0.2) % PT 13.0 (11.1-14.7) Seconds INR 1.0 APTT 26.3 (22.3-36.8) Seconds Sodium 140 (137-145) mmol/L Potassium 3.9 (3.4-5.0) mmol/L Chloride 107 (98-107) mmol/L Carbon Dioxide 20 L (22-30) mmo
== END 2024-06-16 06:33 | disposition home or self-care (01) ==
PROVIDERS: Emergency Provider Emergency Medicine
DX: N93.9 Abnormal uterine and vaginal bleeding, unspecified (principal)
CPT/HCPCS: 36415; 80053; 81001; 81025; 84702; 85025; 85461; 85610; 85730; 86850; 86900; 86901; 87086; 87088; 99284